=== PATIENT | female | born 1955 | race African-American/Black ===

== ENCOUNTER 2017-10-31 17:48 | Emergency (ER) | payer MEDICARE ==
[~2017-10-31] VITALS: Ht 157.5 cm; Wt 62.7 kg
[~2017-10-31 17:48] MED LIST: MORPHINE 1515 MG/TAB PO; MULTIPLE VITAMI1 CAP PO; NATURAL E400 IU PO; ROXICODONE15 MG PO
[2017-10-31 17:53] VITALS: BP 121/78; PULSE 97; TEMP 98.2
[2017-10-31] MEDS ORDERED: MS CONTIN 115 MG/TAB PO (18:30)
[2017-10-31 19:03] LABS: BASO # 0.1 (0.0-0.2); BASO % 0.9 % (0.0-2.0); EOS # 0.2 (0.0-0.7); EOS % 3.1 % (0-4.0); GRAN # 3.8 (1.4-6.5); HEMATOCRIT 37.4 % (37.0-47.0); HEMOGLOBIN 12.5 g/dl (12.5-16.0); LYMPH % 38.7 % (20.0-51.0); MEAN CELL VOLUME 98 fl (80.0-100.0); MEAN CORPUSCULAR HEMOGLOBIN 33 pg (27.0-31.0); MEAN CORPUSCULAR HGB CONC 33 g/dl (33.0-37.0); MEAN PLATELET VOLUME 9.2 fl (7.4-10.4); MONO # 0.7 (0.1-0.6); MONO % 8.7 % (1.7-9.3); PLATELET COUNT 239 K/mm3 (130-400); RED BLOOD COUNT 3.81 M/mm3 (4.10-5.30); REDCELL DISTRIBUTION WIDTH-CV 14.3 % (11.5-14.5)
[2017-10-31 19:08] LABS: ALBUMIN 4.5 gm/dL (3.5-5.0); BILIRUBIN,TOTAL 0.5 mg/dL (0.0-1.0); CALCIUM 9.5 mg/dL (8.4-10.2); CREATININE, serum 0.59 mg/dL (0.52-1.25); POTASSIUM 3.5 mmol/L (3.4-5.0); TOTAL PROTEIN 8.4 gm/dL (6.4-8.2)
== END 2017-10-31 19:56 | disposition home or self-care (01) ==
LOC: COL.ER 17:48
PROVIDERS: Physician Assistant
DX: R51 Headache (principal)
CPT/HCPCS: J0780; J1200; J1885

== ENCOUNTER 2018-07-24 11:01 | Emergency (ER) | payer MEDICARE ==
[~2018-07-24] VITALS: Ht 157.5 cm; Wt 63.6 kg
[~2018-07-24 11:01] MED LIST changes: +MS CONTIN 115 MG/TAB PO
[2018-07-24 11:07] VITALS: BP 120/73; PULSE 105; TEMP 98.5
== END 2018-07-24 11:56 | disposition left against medical advice (07) ==
LOC: COL.ER 11:01
DX: M54.5 Low back pain (principal); W00.0XXA Fall on same level due to ice and snow, initial encounter

== ENCOUNTER 2019-04-12 06:16 | Emergency (ER) | payer MEDICARE ==
[~2019-04-12] VITALS: Ht 157.5 cm; Wt 63.6 kg
[2019-04-12] MEDS ORDERED: MOBIC15 MG PO (06:43)
[2019-04-12] MEDS ORDERED: ZANAFLEX 4MG TAB4 MG PO (06:43)
[2019-04-12 06:44] LABS: BASO # 0.1 (0.0-0.2); BASO % 0.8 % (0.0-2.0); EOS # 0.2 (0.0-0.7); EOS % 3.5 % (0-4.0); GRAN # 3.7 (1.4-6.5); GRAN % 59.6 % (42.2-75.2); HEMOGLOBIN 10.7 g/dl (12.5-16.0); LYMPH # 1.7 (1.2-3.4); LYMPH % 27.2 % (20.0-51.0); MEAN CELL VOLUME 102 fl (80.0-100.0); MEAN CORPUSCULAR HEMOGLOBIN 33 pg (27.0-31.0); MEAN CORPUSCULAR HGB CONC 33 g/dl (33.0-37.0); MEAN PLATELET VOLUME 9.4 fl (7.4-10.4); MONO # 0.5 (0.1-0.6); MONO % 8.7 % (1.7-9.3); PLATELET COUNT 240 K/mm3 (130-400); RED BLOOD COUNT 3.22 M/mm3 (4.10-5.30); REDCELL DISTRIBUTION WIDTH-CV 13.1 % (11.5-14.5)
[2019-04-12 06:47] LABS: HEMATOCRIT 32.9 % (37.0-47.0)
[2019-04-12 06:59] LABS: ALANINE AMINOTRANSFERASE 48 U/L (9-52); ALBUMIN 3.5 gm/dL (3.5-5.0); ALCOHOL(ethanol),MEDICAL 112 mg/dL; ALKALINE PHOSPHATASE 68 U/L (50-136); ANION GAP 10 mmol/L (7-16); AST,SGOT 68 U/L (15-37); BILIRUBIN,TOTAL 0.2 mg/dL (0.0-1.0); BLOOD UREA NITROGEN 16 mg/dL (7-17); CALCIUM 8.5 mg/dL (8.4-10.2); CARBON DIOXIDE 25 mmol/L (22-30); CHLORIDE 105 mmol/L (98-107); CREATININE, serum 0.66 (0.52-1.25); GLUCOSE 120 mg/dL (74-106); LIPASE 18 U/L (23-300); MAGNESIUM 1.6 mg/dL (1.6-2.3); POTASSIUM 3.2 mmol/L (3.4-5.0); SODIUM 141 mmol/L (137-145); TOTAL PROTEIN 6.1 gm/dL (6.4-8.2)
[2019-04-12 07:15] LABS: TROPONIN-I < 0.012 ng/mL (0.000-0.035)
[2019-04-12 08:21] LABS: COLLECTION METHOD CLEAN CATCH
[2019-04-12 08:46] LABS: MUCOUS Present /lpf; PH 5 (5-8); SQUAMOUS EPITHELIAL 0-2 /hpf; URINE APPEARANCE Hazy; URINE BACTERIA Rare /hpf; URINE BILIRUBIN Negative (NEGATIVE); URINE BLOOD Negative (NEGATIVE); URINE COLOR Yellow; URINE GLUCOSE Negative (NEGATIVE); URINE KETONE Trace (NEGATIVE); URINE LEUKOCYTE ESTERASE 2+ (NEGATIVE); URINE NITRATE Negative (NEGATIVE); URINE PROTEIN(semi-quant) Negative (NEGATIVE)
[2019-04-12] MEDS ORDERED: OMNICEF 300MG300 MG PO (08:51)
[2019-04-12 08:53] LABS: TRICYCLIC ANTIDEPRESS URINE NEGATIVE
[2019-04-12 09:00] VITALS: BP 134/93; PULSE 77
[2019-04-15] MEDS ORDERED: MACROBID 1100 MG/CAP PO (09:18)
== END 2019-04-12 09:00 | disposition home or self-care (01) ==
LOC: COL.ER 06:16
PROVIDERS: Emergency Medicine
DX: N39.0 Urinary tract infection, site not specified (principal); F10.129 Alcohol abuse with intoxication, unspecified; Y90.5 Blood alcohol level of 100-119 mg/100 ml
CPT/HCPCS: J3411; J7030